=== PATIENT | male | born 1965 | race Caucasian/White ===

== ENCOUNTER 2021-05-22 10:16 | Observation (INO) ==
[2021-05-22] MEDS ORDERED: Metoprolol Tartrate 5 mg VIAL 5 ml VIAL (1 mg/ml) IV ONE (10:28)
[2021-05-22 10:35] LABS: ABS Basophils 0.1 10^3/ul (0-0.2); ABS Eosinophils 0.1 10^3/ul (0-0.6); ABS Lymphocytes 1.1 10^3/ul (1.0-4.8); ABS Monocytes 0.6 10^3/ul (0-0.8); ABS Neutrophils 5.5 10^3/ul (1.5-7.7); Eosinophil % 1.1 %; Hematocrit 44 % (42-52); Hemoglobin 14.7 g/dL (14.0-18.0); Lymphocyte % 15.6 %; Mean Corpuscular HGB Conc 34 g/dL (31-36); Mean Corpuscular Hemoglobin 32 pg (27-31); Mean Corpuscular Volume 95 fL (80-94); Mean Platelet Volume 7.1 fL (7.4-10.4); Platelet Count 245 10^3/uL (150-450); Red Blood Count 4.58 10^6 /uL (4.18-5.48); Red Cell Distribution Width 14 % (10-15); White Blood Count 7.4 10^3/uL (3.5-10.8)
[2021-05-22] MEDS ORDERED: Heparin DRIP 25,000 UNITS BAG 25,000 UNITS/500 ML BAG IV SCH (10:45)
[2021-05-22] MEDS ORDERED: Heparin 5000 UNITS/ML 1 mL VIAL IV SCH (11:00)
[2021-05-22 11:15] LABS: INR 1.2 (0.86-1.15)
[2021-05-22 11:18] LABS: Activated Partial Thrombo Time 172.7 seconds (26.0-38.0)
[2021-05-22 11:51] LABS: Albumin 4.1 g/dL (3.2-5.2); Magnesium 1.9 mg/dL (1.9-2.7)
[2021-05-22 11:52] LABS: Calcium 9.2 mg/dL (8.6-10.3); Potassium 4.4 mmol/L (3.5-5.0); Total Bilirubin 0.5 mg/dL (0.2-1.0)
[2021-05-22 11:57] LABS: Albumin/Globulin Ratio 1.7 (1-3); Globulin 2.4 g/dL (2-4); Total Protein 6.5 g/dL (6.4-8.9)
[2021-05-22 12:42] LABS: eGFR CKD-EPI 88.3 (>60)
[2021-05-22 13:23] LABS: High Sensitivity Troponin 1 Hr 10 pg/mL (<20)
[2021-05-22] MEDS ORDERED: Heparin 5000 UNITS/ML 1 mL VIAL SUBCUT SCH (14:00)
[2021-05-22 14:51] VITALS: BP 145/91
== END 2021-05-22 16:29 | disposition left against medical advice (07) ==
LOC: EDHOLD 10:16 → ED 10:16 → EDHOLD 15:22
PROVIDERS: ADMIT Internal Medicine; ATTEND Internal Medicine

== ENCOUNTER 2021-10-08 17:17 | Inpatient (IN) ==
[2021-10-08] MEDS ORDERED: Heparin DRIP 25,000 UNITS BAG 25,000 UNITS/500 ML BAG IV SCH (19:15)
[2021-10-08] MEDS ORDERED: Ondansetron 4 mg VIAL 2 MG/ML 2 ml VIAL IV PRN (19:20)
[2021-10-08 19:48] LABS: Hematocrit 48 % (42-52); Hemoglobin 16.4 g/dL (14.0-18.0); Mean Corpuscular HGB Conc 34 g/dL (31-36); Mean Corpuscular Hemoglobin 32 pg (27-31); Mean Corpuscular Volume 94 fL (80-94); Mean Platelet Volume 7.1 fL (7.4-10.4); Platelet Count 232 10^3/uL (150-450); Red Blood Count 5.12 10^6 /uL (4.18-5.48); Red Cell Distribution Width 14 % (10-15)
[2021-10-08 19:51] LABS: ABS Eosinophils 0.1 10^3/ul (0-0.6); ABS Lymphocytes 1.5 10^3/ul (1.0-4.8); ABS Monocytes 0.7 10^3/ul (0-0.8); ABS Neutrophils 6.6 10^3/ul (1.5-7.7); Eosinophil % 1.1 %; Lymphocyte % 17.2 %
[2021-10-08] MEDS ORDERED: Heparin 5000 UNITS/ML 1 mL VIAL IV SCH (20:00)
[2021-10-08 20:31] LABS: eGFR CKD-EPI 96.4 (>60)
[2021-10-09 05:00] LABS: ABS Eosinophils 0.1 10^3/ul (0-0.6); ABS Lymphocytes 1.3 10^3/ul (1.0-4.8); ABS Monocytes 0.7 10^3/ul (0-0.8); ABS Neutrophils 6.2 10^3/ul (1.5-7.7); Eosinophil % 1.3 %; Hematocrit 47 % (42-52); Lymphocyte % 15.9 %; Mean Corpuscular HGB Conc 34 g/dL (31-36); Mean Corpuscular Hemoglobin 32 pg (27-31); Mean Corpuscular Volume 95 fL (80-94); Mean Platelet Volume 7.1 fL (7.4-10.4); Platelet Count 218 10^3/uL (150-450); Red Blood Count 4.98 10^6 /uL (4.18-5.48); Red Cell Distribution Width 14 % (10-15); White Blood Count 8.3 10^3/uL (3.5-10.8)
[2021-10-09 05:42] LABS: Albumin/Globulin Ratio 1.5 (1-3); Calcium 9.2 mg/dL (8.6-10.3); Globulin 2.6 g/dL (2-4); Potassium 4.2 mmol/L (3.5-5.0); Total Protein 6.6 g/dL (6.4-8.9); eGFR CKD-EPI 99.3 (>60)
[2021-10-09] MEDS ORDERED: Perflutren Lipid Microsphere 3 ML VIAL ONE (08:02)
[2021-10-09 09:38] LABS: Magnesium 1.9 mg/dL (1.9-2.7); Phosphorus 3.4 mg/dL (2.5-5.0)
[2021-10-09 10:22] LABS: Folate 13.94 ng/mL (5.90-24.80)
[2021-10-09] MEDS ORDERED: Heparin 5000 UNITS/ML 1 mL VIAL IV SCH (13:00)
[2021-10-09] MEDS: Heparin DRIP 25,000 UNITS BAG 25,000 UNITS/500 ML BAG IV SCH (14:42)
[2021-10-09 15:00] LABS: HDL Cholesterol 41.9 mg/dL
[2021-10-10 03:51] LABS: Hematocrit 48 % (42-52); Hemoglobin 16.4 g/dL (14.0-18.0); Mean Corpuscular HGB Conc 34 g/dL (31-36); Mean Corpuscular Hemoglobin 32 pg (27-31); Mean Corpuscular Volume 94 fL (80-94); Platelet Count 224 10^3/uL (150-450); Red Blood Count 5.14 10^6 /uL (4.18-5.48); Red Cell Distribution Width 14 % (10-15)
[2021-10-10 04:21] LABS: Calcium 9.5 mg/dL (8.6-10.3); Potassium 4.2 mmol/L (3.5-5.0); eGFR CKD-EPI 86.2 (>60)
[2021-10-10] MEDS: Heparin DRIP 25,000 UNITS BAG 25,000 UNITS/500 ML BAG IV SCH ×2 (09:58→13:38)
[2021-10-11] MEDS: Heparin DRIP 25,000 UNITS BAG 25,000 UNITS/500 ML BAG IV SCH ×3 (04:55→18:39)
[2021-10-11 06:10] LABS: Hematocrit 48 % (42-52); Hemoglobin 17.3 g/dL (14.0-18.0); Mean Corpuscular HGB Conc 36 g/dL (31-36); Mean Corpuscular Hemoglobin 33 pg (27-31); Mean Corpuscular Volume 94 fL (80-94); Mean Platelet Volume 7.5 fL (7.4-10.4); Platelet Count 241 10^3/uL (150-450); Red Blood Count 5.18 10^6 /uL (4.18-5.48); Red Cell Distribution Width 14 % (10-15); White Blood Count 8.5 10^3/uL (3.5-10.8)
[2021-10-11 06:28] LABS: Calcium 9.1 mg/dL (8.6-10.3); Potassium 4.1 mmol/L (3.5-5.0); eGFR CKD-EPI 77.8 (>60)
[2021-10-11] MEDS: Nicotine PATCH 21 MG/24 HR PATCH TRANSDERM SCH (18:38)
[2021-10-12 05:31] LABS: Hematocrit 48 % (42-52); Mean Corpuscular HGB Conc 36 g/dL (31-36); Mean Corpuscular Hemoglobin 34 pg (27-31); Mean Corpuscular Volume 95 fL (80-94); Mean Platelet Volume 7.6 fL (7.4-10.4); Platelet Count 225 10^3/uL (150-450); Red Blood Count 5.05 10^6 /uL (4.18-5.48); Red Cell Distribution Width 14 % (10-15); White Blood Count 9.5 10^3/uL (3.5-10.8)
[2021-10-12 05:48] LABS: Calcium 9.1 mg/dL (8.6-10.3); Potassium 4.1 mmol/L (3.5-5.0); eGFR CKD-EPI 78.7 (>60)
[2021-10-12] MEDS: Nicotine PATCH 21 MG/24 HR PATCH TRANSDERM SCH (10:10)
[2021-10-13] MEDS: Nicotine PATCH 21 MG/24 HR PATCH TRANSDERM SCH (08:34)
[2021-10-14] MEDS: Nicotine PATCH 21 MG/24 HR PATCH TRANSDERM SCH (10:48)
[2021-10-14 13:21] VITALS: BP 140/78
== END 2021-10-14 13:25 | DRG 65 ==
LOC: ICU 18:52 → SUATTDRO 18:52 → MEDTELE 10-09 19:52
PROVIDERS: ADMIT Internal Medicine; ATTEND Internal Medicine

== ENCOUNTER 2021-10-14 09:18 | Inpatient (IN) ==
[2021-10-14] MEDS ORDERED: Al Hydrox/Mg Hydrox/Simet LIQ 30 ML UDC PO PRN (11:09)
[2021-10-14] MEDS ORDERED: Magnesium Hydroxide LIQ 30 ML UDC PO PRN (11:09)
[2021-10-14] MEDS ORDERED: Ondansetron ODT 4 mg TAB 4 MG TAB SL PRN (11:21)
[2021-10-14] MEDS: Senna TAB 8.6 mg TAB PO SCH (19:38)
[2021-10-15 06:10] LABS: ABS Eosinophils 0.1 10^3/ul (0-0.6); ABS Lymphocytes 1.3 10^3/ul (1.0-4.8); ABS Monocytes 0.9 10^3/ul (0-0.8); ABS Neutrophils 5.8 10^3/ul (1.5-7.7); Eosinophil % 1.4 %; Hematocrit 47 % (42-52); Hemoglobin 16.9 g/dL (14.0-18.0); Lymphocyte % 16.1 %; Mean Corpuscular HGB Conc 36 g/dL (31-36); Mean Corpuscular Hemoglobin 34 pg (27-31); Mean Corpuscular Volume 95 fL (80-94); Mean Platelet Volume 7.5 fL (7.4-10.4); Platelet Count 237 10^3/uL (150-450); Red Blood Count 5.01 10^6 /uL (4.18-5.48); Red Cell Distribution Width 14 % (10-15); White Blood Count 8.1 10^3/uL (3.5-10.8)
[2021-10-15 07:10] LABS: Albumin 4.1 g/dL (3.2-5.2); Albumin/Globulin Ratio 1.6 (1-3); Calcium 9.4 mg/dL (8.6-10.3); Globulin 2.6 g/dL (2-4); Potassium 4.9 mmol/L (3.5-5.0); Total Protein 6.7 g/dL (6.4-8.9); eGFR CKD-EPI 66.7 (>60)
[2021-10-15] MEDS: Nicotine PATCH 21 MG/24 HR PATCH TRANSDERM SCH (09:51)
[2021-10-15] MEDS: Senna TAB 8.6 mg TAB PO SCH (20:44)
[2021-10-16] MEDS: Nicotine PATCH 21 MG/24 HR PATCH TRANSDERM SCH (08:26)
[2021-10-16] MEDS: Senna TAB 8.6 mg TAB PO SCH (21:02)
[2021-10-17 07:01] LABS: Calcium 9.7 mg/dL (8.6-10.3); Potassium 4.2 mmol/L (3.5-5.0); eGFR CKD-EPI 74.5 (>60)
[2021-10-17] MEDS: Nicotine PATCH 21 MG/24 HR PATCH TRANSDERM SCH (07:46)
[2021-10-17] MEDS: Senna TAB 8.6 mg TAB PO SCH (21:14)
[2021-10-18] MEDS: Nicotine PATCH 21 MG/24 HR PATCH TRANSDERM SCH (08:33)
[2021-10-18] MEDS: Senna TAB 8.6 mg TAB PO SCH (20:10)
[2021-10-19] MEDS: Nicotine PATCH 21 MG/24 HR PATCH TRANSDERM SCH (10:53)
[2021-10-19] MEDS: Senna TAB 8.6 mg TAB PO SCH (20:37)
[2021-10-20] MEDS: Nicotine PATCH 21 MG/24 HR PATCH TRANSDERM SCH (09:06)
[2021-10-20] MEDS: Senna TAB 8.6 mg TAB PO SCH (21:17)
[2021-10-21] MEDS: Nicotine PATCH 21 MG/24 HR PATCH TRANSDERM SCH (08:55)
[2021-10-21] MEDS: Senna TAB 8.6 mg TAB PO SCH (21:52)
[2021-10-22 05:58] LABS: ABS Basophils 0.1 10^3/ul (0-0.2); ABS Eosinophils 0.1 10^3/ul (0-0.6); ABS Lymphocytes 1.7 10^3/ul (1.0-4.8); ABS Monocytes 0.5 10^3/ul (0-0.8); ABS Neutrophils 4.2 10^3/ul (1.5-7.7); Eosinophil % 2.1 %; Hematocrit 45 % (42-52); Hemoglobin 15.5 g/dL (14.0-18.0); Lymphocyte % 24.9 %; Mean Corpuscular HGB Conc 35 g/dL (31-36); Mean Corpuscular Hemoglobin 32 pg (27-31); Mean Corpuscular Volume 93 fL (80-94); Mean Platelet Volume 7.5 fL (7.4-10.4); Nucleated Red Blood Cells % 0.1; Platelet Count 272 10^3/uL (150-450); Red Blood Count 4.82 10^6 /uL (4.18-5.48); Red Cell Distribution Width 13 % (10-15); White Blood Count 6.6 10^3/uL (3.5-10.8)
[2021-10-22 06:20] LABS: Albumin 3.8 g/dL (3.2-5.2); Albumin/Globulin Ratio 1.6 (1-3); Calcium 9.3 mg/dL (8.6-10.3); Globulin 2.4 g/dL (2-4); Potassium 4.3 mmol/L (3.5-5.0); Total Bilirubin 0.7 mg/dL (0.2-1.0); Total Protein 6.2 g/dL (6.4-8.9); eGFR CKD-EPI 79.5 (>60)
[2021-10-22] MEDS: Nicotine PATCH 21 MG/24 HR PATCH TRANSDERM SCH (07:26)
[2021-10-22] MEDS: Senna TAB 8.6 mg TAB PO SCH (21:19)
[2021-10-23] MEDS: Nicotine PATCH 21 MG/24 HR PATCH TRANSDERM SCH (08:52)
[2021-10-23] MEDS: Senna TAB 8.6 mg TAB PO SCH (20:21)
[2021-10-24] MEDS: Nicotine PATCH 21 MG/24 HR PATCH TRANSDERM SCH (10:07)
[2021-10-24] MEDS: Senna TAB 8.6 mg TAB PO SCH (19:50)
[2021-10-25] MEDS: Nicotine PATCH 21 MG/24 HR PATCH TRANSDERM SCH (10:09)
[2021-10-25] MEDS: Senna TAB 8.6 mg TAB PO SCH (19:37)
[2021-10-26] MEDS: Nicotine PATCH 21 MG/24 HR PATCH TRANSDERM SCH (11:09)
[2021-10-26] MEDS: Senna TAB 8.6 mg TAB PO SCH (20:34)
[2021-10-27] MEDS: Nicotine PATCH 21 MG/24 HR PATCH TRANSDERM SCH (10:46)
[2021-10-27] MEDS: Nicotine PATCH 14 MG/24 HR PATCH TRANSDERM SCH (11:44)
[2021-10-27] MEDS: Nystatin TOP POWDER 15 GM BTL TOPICAL SCH ×3 (11:46→20:37)
[2021-10-27] MEDS: Senna TAB 8.6 mg TAB PO SCH (20:36)
[2021-10-28] MEDS: Nicotine PATCH 14 MG/24 HR PATCH TRANSDERM SCH (10:23)
[2021-10-28] MEDS: Nystatin TOP POWDER 15 GM BTL TOPICAL SCH ×3 (10:24→20:10)
[2021-10-28] MEDS: Senna TAB 8.6 mg TAB PO SCH ×2 (20:11→20:15)
[2021-10-29 05:43] LABS: ABS Basophils 0.1 10^3/ul (0-0.2); ABS Eosinophils 0.2 10^3/ul (0-0.6); ABS Monocytes 0.7 10^3/ul (0-0.8); ABS Neutrophils 4.5 10^3/ul (1.5-7.7); Eosinophil % 2.2 %; Hematocrit 44 % (42-52); Hemoglobin 15.2 g/dL (14.0-18.0); Lymphocyte % 26.6 %; Mean Corpuscular HGB Conc 35 g/dL (31-36); Mean Corpuscular Hemoglobin 33 pg (27-31); Mean Corpuscular Volume 93 fL (80-94); Mean Platelet Volume 7.7 fL (7.4-10.4); Platelet Count 236 10^3/uL (150-450); Red Blood Count 4.68 10^6 /uL (4.18-5.48); Red Cell Distribution Width 13 % (10-15); White Blood Count 7.4 10^3/uL (3.5-10.8)
[2021-10-29 06:28] LABS: Albumin 3.8 g/dL (3.2-5.2); Albumin/Globulin Ratio 1.7 (1-3); Calcium 9.6 mg/dL (8.6-10.3); Globulin 2.3 g/dL (2-4); Potassium 4.6 mmol/L (3.5-5.0); Total Bilirubin 0.7 mg/dL (0.2-1.0); Total Protein 6.1 g/dL (6.4-8.9); eGFR CKD-EPI 68.1 (>60)
[2021-10-29] MEDS: Nicotine PATCH 14 MG/24 HR PATCH TRANSDERM SCH (09:09)
[2021-10-29] MEDS: Nystatin TOP POWDER 15 GM BTL TOPICAL SCH ×3 (09:12→20:19)
[2021-10-29] MEDS: Senna TAB 8.6 mg TAB PO SCH (20:29)
[2021-10-30] MEDS: Nystatin TOP POWDER 15 GM BTL TOPICAL SCH ×3 (10:22→20:31)
[2021-10-30] MEDS: Nicotine PATCH 14 MG/24 HR PATCH TRANSDERM SCH (10:22)
[2021-10-30] MEDS: Senna TAB 8.6 mg TAB PO SCH (20:27)
[2021-10-31] MEDS: Nystatin TOP POWDER 15 GM BTL TOPICAL SCH ×3 (08:21→20:47)
[2021-10-31] MEDS: Nicotine PATCH 14 MG/24 HR PATCH TRANSDERM SCH (08:24)
[2021-10-31] MEDS: Senna TAB 8.6 mg TAB PO SCH (20:48)
[2021-11-01] MEDS: Nystatin TOP POWDER 15 GM BTL TOPICAL SCH ×3 (09:06→20:43)
[2021-11-01] MEDS: Nicotine PATCH 14 MG/24 HR PATCH TRANSDERM SCH (09:06)
[2021-11-01] MEDS: Senna TAB 8.6 mg TAB PO SCH (20:10)
[2021-11-02] MEDS: Nicotine PATCH 14 MG/24 HR PATCH TRANSDERM SCH (11:04)
[2021-11-02] MEDS: Nystatin TOP POWDER 15 GM BTL TOPICAL SCH ×3 (15:51→20:28)
[2021-11-02 19:20] LABS: Urine Appearance Clear; Urine Bilirubin Negative (Negative); Urine Blood Trace (Lysed) (Negative); Urine Color Yellow; Urine Glucose Negative (Negative); Urine Ketones Negative (Negative); Urine Nitrite Negative (Negative); Urine Protein Negative (Negative); Urine Specific Gravity 1.015 (1.005-1.030); Urine Urobilinogen 0.2 (Negative) (Negative); Urine pH 5.5 (5.0-9.0)
[2021-11-02 19:34] LABS: Urine Bacteria Absent (Absent); Urine Red Blood Cell Trace(0-2/hpf) (Absent); Urine White Blood Cell Trace(0-5/hpf) (Absent)
[2021-11-02] MEDS: Senna TAB 8.6 mg TAB PO SCH (20:29)
[2021-11-03] MEDS: Nystatin TOP POWDER 15 GM BTL TOPICAL SCH ×3 (09:44→21:16)
[2021-11-03] MEDS: Nicotine PATCH 14 MG/24 HR PATCH TRANSDERM SCH (09:46)
[2021-11-03] MEDS: Senna TAB 8.6 mg TAB PO SCH (21:23)
[2021-11-04] MEDS: Nicotine PATCH 14 MG/24 HR PATCH TRANSDERM SCH (09:57)
[2021-11-04] MEDS: Nystatin TOP POWDER 15 GM BTL TOPICAL SCH ×3 (10:02→19:46)
[2021-11-04] MEDS: Senna TAB 8.6 mg TAB PO SCH (20:03)
[2021-11-05 05:55] LABS: ABS Basophils 0.1 10^3/ul (0-0.2); ABS Eosinophils 0.1 10^3/ul (0-0.6); ABS Lymphocytes 1.5 10^3/ul (1.0-4.8); ABS Monocytes 0.6 10^3/ul (0-0.8); ABS Neutrophils 3.5 10^3/ul (1.5-7.7); Eosinophil % 2.5 %; Hematocrit 45 % (42-52); Hemoglobin 15.3 g/dL (14.0-18.0); Lymphocyte % 26.1 %; Mean Corpuscular HGB Conc 34 g/dL (31-36); Mean Corpuscular Hemoglobin 31 pg (27-31); Mean Corpuscular Volume 93 fL (80-94); Mean Platelet Volume 7.6 fL (7.4-10.4); Nucleated Red Blood Cells % 0.1; Platelet Count 216 10^3/uL (150-450); Red Blood Count 4.87 10^6 /uL (4.18-5.48); Red Cell Distribution Width 13 % (10-15); White Blood Count 5.7 10^3/uL (3.5-10.8)
[2021-11-05 06:57] LABS: Albumin 3.9 g/dL (3.2-5.2); Albumin/Globulin Ratio 1.6 (1-3); Calcium 9.4 mg/dL (8.6-10.3); Globulin 2.4 g/dL (2-4); Potassium 4.5 mmol/L (3.5-5.0); Total Bilirubin 0.9 mg/dL (0.2-1.0); Total Protein 6.3 g/dL (6.4-8.9); eGFR CKD-EPI 76.1 (>60)
[2021-11-05] MEDS: Nicotine PATCH 14 MG/24 HR PATCH TRANSDERM SCH (10:34)
[2021-11-05] MEDS: Nystatin TOP POWDER 15 GM BTL TOPICAL SCH ×3 (10:35→21:37)
[2021-11-05] MEDS: Senna TAB 8.6 mg TAB PO SCH (21:37)
[2021-11-06] MEDS: Nicotine PATCH 14 MG/24 HR PATCH TRANSDERM SCH (08:16)
[2021-11-06] MEDS: Nystatin TOP POWDER 15 GM BTL TOPICAL SCH ×3 (08:17→21:12)
[2021-11-06] MEDS: Senna TAB 8.6 mg TAB PO SCH (20:23)
[2021-11-07] MEDS: Nystatin TOP POWDER 15 GM BTL TOPICAL SCH ×3 (10:09→20:23)
[2021-11-07] MEDS: Nicotine PATCH 14 MG/24 HR PATCH TRANSDERM SCH (10:09)
[2021-11-07] MEDS: Senna TAB 8.6 mg TAB PO SCH (21:24)
[2021-11-08] MEDS: Nicotine PATCH 14 MG/24 HR PATCH TRANSDERM SCH (08:12)
[2021-11-08] MEDS: Nystatin TOP POWDER 15 GM BTL TOPICAL SCH ×3 (12:21→21:57)
[2021-11-08] MEDS: Senna TAB 8.6 mg TAB PO SCH (21:57)
[2021-11-09] MEDS: Nystatin TOP POWDER 15 GM BTL TOPICAL SCH ×2 (07:58→21:05)
[2021-11-09] MEDS: Nicotine PATCH 14 MG/24 HR PATCH TRANSDERM SCH (07:59)
[2021-11-09] MEDS: Senna TAB 8.6 mg TAB PO SCH (21:04)
[2021-11-10] MEDS: Nicotine PATCH 7 MG/24 HR PATCH TRANSDERM SCH (09:02)
[2021-11-10] MEDS: Nystatin TOP POWDER 15 GM BTL TOPICAL SCH ×2 (13:08→21:03)
[2021-11-10] MEDS: Senna TAB 8.6 mg TAB PO SCH (21:05)
[2021-11-11] MEDS: Nicotine PATCH 7 MG/24 HR PATCH TRANSDERM SCH (09:19)
[2021-11-11] MEDS: Nystatin TOP POWDER 15 GM BTL TOPICAL SCH ×2 (09:22→20:44)
[2021-11-11] MEDS: Senna TAB 8.6 mg TAB PO SCH (20:41)
[2021-11-12 08:15] LABS: ABS Eosinophils 0.2 10^3/ul (0-0.6); ABS Lymphocytes 1.4 10^3/ul (1.0-4.8); ABS Monocytes 0.5 10^3/ul (0-0.8); ABS Neutrophils 3.5 10^3/ul (1.5-7.7); Hematocrit 45 % (42-52); Hemoglobin 15.5 g/dL (14.0-18.0); Lymphocyte % 25.5 %; Mean Corpuscular HGB Conc 35 g/dL (31-36); Mean Corpuscular Hemoglobin 32 pg (27-31); Mean Corpuscular Volume 93 fL (80-94); Mean Platelet Volume 7.9 fL (7.4-10.4); Platelet Count 224 10^3/uL (150-450); Red Blood Count 4.79 10^6 /uL (4.18-5.48); Red Cell Distribution Width 13 % (10-15); White Blood Count 5.6 10^3/uL (3.5-10.8)
[2021-11-12 08:48] LABS: Albumin/Globulin Ratio 1.7 (1-3); Calcium 9.6 mg/dL (8.6-10.3); Globulin 2.4 g/dL (2-4); Potassium 4.5 mmol/L (3.5-5.0); Total Bilirubin 1.1 mg/dL (0.2-1.0); Total Protein 6.4 g/dL (6.4-8.9)
[2021-11-12] MEDS: Nystatin TOP POWDER 15 GM BTL TOPICAL SCH ×2 (09:40→20:11)
[2021-11-12] MEDS: Nicotine PATCH 7 MG/24 HR PATCH TRANSDERM SCH (09:40)
[2021-11-12] MEDS: Senna TAB 8.6 mg TAB PO SCH (20:06)
[2021-11-13] MEDS: Nystatin TOP POWDER 15 GM BTL TOPICAL SCH ×2 (10:59→20:25)
[2021-11-13] MEDS: Nicotine PATCH 7 MG/24 HR PATCH TRANSDERM SCH (10:59)
[2021-11-13] MEDS: Senna TAB 8.6 mg TAB PO SCH (20:21)
[2021-11-14] MEDS: Nicotine PATCH 7 MG/24 HR PATCH TRANSDERM SCH (11:03)
[2021-11-14] MEDS: Nystatin TOP POWDER 15 GM BTL TOPICAL SCH ×2 (11:04→19:54)
[2021-11-14] MEDS: Senna TAB 8.6 mg TAB PO SCH (19:50)
[2021-11-15] MEDS: Nystatin TOP POWDER 15 GM BTL TOPICAL SCH ×2 (09:18→20:20)
[2021-11-15] MEDS: Nicotine PATCH 7 MG/24 HR PATCH TRANSDERM SCH (09:19)
[2021-11-15] MEDS: Senna TAB 8.6 mg TAB PO SCH (20:20)
[2021-11-16] MEDS: Nicotine PATCH 7 MG/24 HR PATCH TRANSDERM SCH (09:13)
[2021-11-16] MEDS: Nystatin TOP POWDER 15 GM BTL TOPICAL SCH ×2 (09:13→21:01)
[2021-11-16] MEDS: Senna TAB 8.6 mg TAB PO SCH (20:59)
[2021-11-17] MEDS: Nicotine PATCH 7 MG/24 HR PATCH TRANSDERM SCH (07:37)
[2021-11-17] MEDS: Nystatin TOP POWDER 15 GM BTL TOPICAL SCH ×2 (09:40→20:23)
[2021-11-17] MEDS: Senna TAB 8.6 mg TAB PO SCH (20:12)
[2021-11-18] MEDS: Nicotine PATCH 7 MG/24 HR PATCH TRANSDERM SCH (08:02)
[2021-11-18] MEDS: Nystatin TOP POWDER 15 GM BTL TOPICAL SCH ×2 (10:08→20:44)
[2021-11-18] MEDS: Senna TAB 8.6 mg TAB PO SCH (20:45)
[2021-11-19 06:36] LABS: ABS Basophils 0.1 10^3/ul (0-0.2); ABS Eosinophils 0.2 10^3/ul (0-0.6); ABS Lymphocytes 1.5 10^3/ul (1.0-4.8); ABS Monocytes 0.6 10^3/ul (0-0.8); ABS Neutrophils 3.7 10^3/ul (1.5-7.7); Eosinophil % 2.7 %; Hematocrit 43 % (42-52); Hemoglobin 15.2 g/dL (14.0-18.0); Lymphocyte % 25.3 %; Mean Corpuscular HGB Conc 36 g/dL (31-36); Mean Corpuscular Hemoglobin 33 pg (27-31); Mean Corpuscular Volume 93 fL (80-94); Mean Platelet Volume 8.2 fL (7.4-10.4); Nucleated Red Blood Cells % 0.1; Platelet Count 220 10^3/uL (150-450); Red Blood Count 4.57 10^6 /uL (4.18-5.48); Red Cell Distribution Width 14 % (10-15)
[2021-11-19 07:08] LABS: ALT 9 U/L (7-52); Albumin 3.7 g/dL (3.2-5.2); Albumin/Globulin Ratio 1.7 (1-3); Alkaline Phosphatase 90 U/L (35-149); Blood Urea Nitrogen 13 mg/dL (6-24); CO2 Carbon Dioxide 25 mmol/L (22-32); Calcium 8.9 mg/dL (8.6-10.3); Chloride 107 mmol/L (101-111); Globulin 2.2 g/dL (2-4); Glucose 88 mg/dL (70-100); Sodium 142 mmol/L (135-145); Total Protein 5.9 g/dL (6.4-8.9); eGFR CKD-EPI 78.7 (>60)
[2021-11-19 07:41] LABS: Anion Gap 10 mmol/L (2-11)
[2021-11-19] MEDS: Nicotine PATCH 7 MG/24 HR PATCH TRANSDERM SCH (11:08)
[2021-11-19] MEDS: Nystatin TOP POWDER 15 GM BTL TOPICAL SCH ×2 (11:10→20:41)
[2021-11-19 13:10] LABS: Potassium Redraw 4.5 mmol/L (3.5-5.0)
[2021-11-19] MEDS: Senna TAB 8.6 mg TAB PO SCH (20:44)
[2021-11-20] MEDS: Nicotine PATCH 7 MG/24 HR PATCH TRANSDERM SCH (09:10)
[2021-11-20] MEDS: Nystatin TOP POWDER 15 GM BTL TOPICAL SCH ×2 (09:11→21:19)
[2021-11-20] MEDS: Senna TAB 8.6 mg TAB PO SCH (21:20)
[2021-11-21] MEDS: Nicotine PATCH 7 MG/24 HR PATCH TRANSDERM SCH (10:39)
[2021-11-21] MEDS: Nystatin TOP POWDER 15 GM BTL TOPICAL SCH ×2 (10:58→21:15)
[2021-11-21] MEDS: Senna TAB 8.6 mg TAB PO SCH (21:14)
[2021-11-22] MEDS: Nicotine PATCH 7 MG/24 HR PATCH TRANSDERM SCH (07:40)
[2021-11-22] MEDS: Nystatin TOP POWDER 15 GM BTL TOPICAL SCH (07:41)
[2021-11-22] MEDS: Senna TAB 8.6 mg TAB PO SCH (21:21)
[2021-11-23] MEDS: Nicotine PATCH 7 MG/24 HR PATCH TRANSDERM SCH (10:16)
[2021-11-23] MEDS: Nystatin TOP POWDER 15 GM BTL TOPICAL SCH ×2 (12:38→20:22)
[2021-11-23] MEDS: Senna TAB 8.6 mg TAB PO SCH (20:21)
[2021-11-24] MEDS: Nicotine PATCH 7 MG/24 HR PATCH TRANSDERM SCH (08:34)
[2021-11-24] MEDS: Nystatin TOP POWDER 15 GM BTL TOPICAL SCH ×2 (08:37→20:18)
[2021-11-24] MEDS: Senna TAB 8.6 mg TAB PO SCH (20:18)
[2021-11-25] MEDS: Nystatin TOP POWDER 15 GM BTL TOPICAL SCH ×2 (12:27→19:29)
[2021-11-25] MEDS: Senna TAB 8.6 mg TAB PO SCH (19:30)
[2021-11-26 06:09] LABS: ABS Basophils 0.1 10^3/ul (0-0.2); ABS Eosinophils 0.2 10^3/ul (0-0.6); ABS Lymphocytes 1.5 10^3/ul (1.0-4.8); ABS Monocytes 0.6 10^3/ul (0-0.8); ABS Neutrophils 3.6 10^3/ul (1.5-7.7); Eosinophil % 2.6 %; Hematocrit 43 % (42-52); Hemoglobin 14.7 g/dL (14.0-18.0); Lymphocyte % 25.7 %; Mean Corpuscular HGB Conc 34 g/dL (31-36); Mean Corpuscular Hemoglobin 31 pg (27-31); Mean Corpuscular Volume 92 fL (80-94); Mean Platelet Volume 7.6 fL (7.4-10.4); Nucleated Red Blood Cells % 0.1; Platelet Count 225 10^3/uL (150-450); Red Blood Count 4.68 10^6 /uL (4.18-5.48); Red Cell Distribution Width 13 % (10-15)
[2021-11-26 06:46] LABS: Albumin 3.8 g/dL (3.2-5.2); Albumin/Globulin Ratio 1.7 (1-3); Calcium 9.2 mg/dL (8.6-10.3); Globulin 2.3 g/dL (2-4); Potassium 4.5 mmol/L (3.5-5.0); Total Protein 6.1 g/dL (6.4-8.9); eGFR CKD-EPI 75.3 (>60)
[2021-11-26] MEDS: Nystatin TOP POWDER 15 GM BTL TOPICAL SCH ×2 (12:33→20:32)
[2021-11-26] MEDS: Senna TAB 8.6 mg TAB PO SCH (20:30)
[2021-11-27] MEDS: Nystatin TOP POWDER 15 GM BTL TOPICAL SCH ×2 (10:03→20:31)
[2021-11-27] MEDS: Senna TAB 8.6 mg TAB PO SCH (20:27)
[2021-11-28] MEDS: Nystatin TOP POWDER 15 GM BTL TOPICAL SCH ×2 (07:40→20:00)
[2021-11-28] MEDS: Senna TAB 8.6 mg TAB PO SCH (20:04)
[2021-11-29] MEDS: Nystatin TOP POWDER 15 GM BTL TOPICAL SCH ×2 (10:09→20:13)
[2021-11-29] MEDS: Senna TAB 8.6 mg TAB PO SCH (20:26)
[2021-11-30] MEDS: Nystatin TOP POWDER 15 GM BTL TOPICAL SCH ×2 (08:22→21:21)
[2021-11-30] MEDS: Senna TAB 8.6 mg TAB PO SCH (21:26)
[2021-12-01] MEDS: Nystatin TOP POWDER 15 GM BTL TOPICAL SCH ×2 (11:53→22:26)
[2021-12-01] MEDS: Senna TAB 8.6 mg TAB PO SCH (22:29)
[2021-12-02] MEDS: Nystatin TOP POWDER 15 GM BTL TOPICAL SCH ×2 (10:30→20:12)
[2021-12-02] MEDS: Senna TAB 8.6 mg TAB PO SCH (20:13)
[2021-12-03 06:41] LABS: ABS Eosinophils 0.2 10^3/ul (0-0.6); ABS Lymphocytes 1.5 10^3/ul (1.0-4.8); ABS Monocytes 0.6 10^3/ul (0-0.8); ABS Neutrophils 3.7 10^3/ul (1.5-7.7); Eosinophil % 2.6 %; Hematocrit 43 % (42-52); Hemoglobin 14.6 g/dL (14.0-18.0); Lymphocyte % 24.8 %; Mean Corpuscular HGB Conc 34 g/dL (31-36); Mean Corpuscular Hemoglobin 32 pg (27-31); Mean Corpuscular Volume 92 fL (80-94); Mean Platelet Volume 7.7 fL (7.4-10.4); Nucleated Red Blood Cells % 0.2; Platelet Count 223 10^3/uL (150-450); Red Blood Count 4.65 10^6 /uL (4.18-5.48); Red Cell Distribution Width 13 % (10-15); White Blood Count 5.9 10^3/uL (3.5-10.8)
[2021-12-03] MEDS: Nystatin TOP POWDER 15 GM BTL TOPICAL SCH ×2 (07:22→21:33)
[2021-12-03 07:36] LABS: Albumin 3.8 g/dL (3.2-5.2); Albumin/Globulin Ratio 1.7 (1-3); Calcium 9.2 mg/dL (8.6-10.3); Globulin 2.3 g/dL (2-4); Potassium 4.5 mmol/L (3.5-5.0); Total Bilirubin 1.1 mg/dL (0.2-1.0); Total Protein 6.1 g/dL (6.4-8.9); eGFR CKD-EPI 82.3 (>60)
[2021-12-03] MEDS: Senna TAB 8.6 mg TAB PO SCH (21:32)
[2021-12-04] MEDS: Nystatin TOP POWDER 15 GM BTL TOPICAL SCH ×2 (07:39→19:40)
[2021-12-04] MEDS: Senna TAB 8.6 mg TAB PO SCH (19:40)
[2021-12-05] MEDS: Nystatin TOP POWDER 15 GM BTL TOPICAL SCH ×2 (13:29→20:25)
[2021-12-05] MEDS: Senna TAB 8.6 mg TAB PO SCH (20:25)
[2021-12-06] MEDS: Nystatin TOP POWDER 15 GM BTL TOPICAL SCH (10:05)
[2021-12-06] MEDS: Senna TAB 8.6 mg TAB PO SCH (20:13)
[2021-12-07] MEDS: Senna TAB 8.6 mg TAB PO SCH (20:16)
[2021-12-08] MEDS: Senna TAB 8.6 mg TAB PO SCH (19:43)
[2021-12-09] MEDS: Senna TAB 8.6 mg TAB PO SCH (21:00)
[2021-12-10 06:53] LABS: ABS Basophils 0.1 10^3/ul (0-0.2); ABS Eosinophils 0.1 10^3/ul (0-0.6); ABS Lymphocytes 1.3 10^3/ul (1.0-4.8); ABS Monocytes 0.6 10^3/ul (0-0.8); ABS Neutrophils 3.8 10^3/ul (1.5-7.7); Eosinophil % 2.5 %; Hematocrit 43 % (42-52); Hemoglobin 14.9 g/dL (14.0-18.0); Lymphocyte % 21.5 %; Mean Corpuscular HGB Conc 35 g/dL (31-36); Mean Corpuscular Hemoglobin 32 pg (27-31); Mean Corpuscular Volume 93 fL (80-94); Mean Platelet Volume 7.8 fL (7.4-10.4); Platelet Count 207 10^3/uL (150-450); Red Blood Count 4.64 10^6 /uL (4.18-5.48); Red Cell Distribution Width 13 % (10-15); White Blood Count 5.9 10^3/uL (3.5-10.8)
[2021-12-10 07:40] LABS: Albumin 3.8 g/dL (3.2-5.2); Albumin/Globulin Ratio 1.7 (1-3); Calcium 9.4 mg/dL (8.6-10.3); Globulin 2.3 g/dL (2-4); Potassium 4.7 mmol/L (3.5-5.0); Total Protein 6.1 g/dL (6.4-8.9); eGFR CKD-EPI 87.2 (>60)
[2021-12-10] MEDS: Senna TAB 8.6 mg TAB PO SCH (20:23)
[2021-12-11] MEDS ORDERED: COVID VACC, MONOVAL PFIZER-TRIS 30 MCG/0.3 ML SYR IM ONE (12:00)
[2021-12-11 18:13] LABS: Rapid COVID-19 Molecular Undetected (Undetected)
[2021-12-11] MEDS: Senna TAB 8.6 mg TAB PO SCH (20:10)
[2021-12-12 05:10] VITALS: BP 117/80
== END 2021-12-12 13:10 | DRG 57 ==
LOC: PMRU 13:41
PROVIDERS: ADMIT Physical Medicine & Rehabilitation; ATTEND Physical Medicine & Rehabilitation